=== PATIENT | female | born 1980 | race Two or more races ===

== ENCOUNTER 2016-04-26 08:31 | Emergency (ER) | payer SELFPAY ==
[2016-04-26] MEDS ORDERED: IBUPROFEN 600 MG TABLET PO ONE (08:49)
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
[2016-04-26] MEDS ORDERED: HYDROCODONE/APAP 5/325MG TABLET PO ONE (10:33)
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
== END 2016-04-26 10:54 | disposition home or self-care (01) ==
LOC: ER 08:31
DX: S20.20XA Contusion of thorax, unspecified, initial encounter (principal); S09.90XA Unspecified injury of head, initial encounter; M54.2 Cervicalgia; V47.0XXA Car driver injured in collision with fixed or stationary object in nontraffic accident, initial encounter
CPT/HCPCS: 70450; 72125; 99283; 99284